=== PATIENT | male | born 1940 | race Caucasian/White ===

== ENCOUNTER → 2021-08-05 | Outpatient (CLI) | payer MEDICARE, BC ==
[~2021-08-05] MED LIST: ASPIRIN EC81 MG PO; ATORVASTATIN CA40 MG PO; AUGMENTIN 875-1 EACH PO; ENDOCET 10-3251 EACH PO; FLOMAX 0.4 MG0.4 MG PO; GLIMEPIRIDE4 MG PO; NEURONTIN400 MG PO
[2021-08-05 10:37] LABS: HEMOGLOBIN 14.2 gm/dl (14.0-17.5); RED BLOOD COUNT 4.41 M/UL (4.20-5.50); WHITE BLOOD COUNT 7.8 K/UL (4.5-11.0)
[2021-08-05 10:55] LABS: BUN/CREATININE RATIO 14 (0-10)
[2021-08-06 11:12] LABS: CREATININE, URINE 83.2 mg/dL (Not Estab.)
== END ==
LOC: LAB 10:15
PROVIDERS: Family Medicine
DX: E11.9 Type 2 diabetes mellitus without complications (principal); I10 Essential (primary) hypertension; E78.5 Hyperlipidemia, unspecified
CPT/HCPCS: 36415; 80053; 80061; 82043; 82570; 85027

== ENCOUNTER → 2022-02-22 | Outpatient (CLI) | payer MEDICARE, BC | LOC: HEART 5 02-15 11:00 | DX: R00.2 Palpitations (principal); R07.9 Chest pain, unspecified; I10 Essential (primary) hypertension; I27.20 Pulmonary hypertension, unspecified; I08.3 Combined rheumatic disorders of mitral, aortic and tricuspid valves | CPT/HCPCS: 93306 ==

== ENCOUNTER → 2022-03-23 | Outpatient (CLI) | payer MEDICARE, BC | LOC: RAD 11:57 | DX: M54.9 Dorsalgia, unspecified (principal); G89.29 Other chronic pain; M51.36 Other intervertebral disc degeneration, lumbar region; M50.30 Other cervical disc degeneration, unspecified cervical region; M47.814 Spondylosis without myelopathy or radiculopathy, thoracic region | CPT/HCPCS: 72050; 72072; 72110 ==